=== PATIENT | male | born 1980 | race African-American/Black ===

== ENCOUNTER 2020-02-29 | Outpatient (REF) | payer OTHER, SELFPAY | END 2020-02-29 00:01 | disposition home or self-care (01) | LOC: HO.MDS | PROVIDERS: PCP Internal Medicine; Visit Provider Internal Medicine Gastroenterology | DX: K51.911 Ulcerative colitis, unspecified with rectal bleeding (principal) | CPT/HCPCS: J3380 ==

== ENCOUNTER → 2020-03-18 11:35 | Outpatient (BNVA) | payer OTHER, SELFPAY | PROVIDERS: PCP Internal Medicine; Referring Provider Internal Medicine; Visit Provider Internal Medicine Gastroenterology | DX: K51.319 Ulcerative (chronic) rectosigmoiditis with unspecified complications (principal); D12.6 Benign neoplasm of colon, unspecified; Z98.890 Other specified postprocedural states | CPT/HCPCS: 99212 ==

== ENCOUNTER 2020-03-28 08:33 | Outpatient (REF) | payer OTHER, SELFPAY | END 2020-03-28 08:34 | disposition home or self-care (01) | LOC: HO.MDS 08:33 | PROVIDERS: PCP Internal Medicine; Visit Provider Internal Medicine Gastroenterology | DX: K51.90 Ulcerative colitis, unspecified, without complications (principal) | CPT/HCPCS: 96365; J3380 ==

== ENCOUNTER 2020-05-05 14:35 | Outpatient (REF) | payer OTHER, SELFPAY ==
[2020-05-05 15:19] LABS: MANUAL DIFF FLAG NO
[2020-05-05 15:22] LABS: Basophils Percent Auto 0.6 % (0-2); Eosinophils Absolute Auto 0.3 X10*3/uL (0.0-0.4); Eosinophils Percent Auto 5.4 % (0-4); Hematocrit 41.3 % (42-52); Hemoglobin 14.1 g/dl (14.0-18.0); Imm Gran Abs Auto 0.03 X10*3/uL (0.00-0.03); Imm Gran Pct Auto 0.6 % (0.0-0.4); Lymphocytes Absolute Auto 1.4 X10*3/uL (1.2-4.9); Lymphocytes Percent Auto 25.7 % (20-40); Mean Corpuscular HGB Conc 34.1 g/dl (31.0-36.0); Mean Corpuscular Hemoglobin 29.6 pg (27.0-33.0); Mean Corpuscular Volume 86.8 fL (80-98); Mean Platelet Volume 9.5 fL (9.4-12.4); Monocytes Absolute Auto 0.4 X10*3/uL (0.1-1.2); Neutrophils Absolute Auto 3.2 X10*3/uL (2.0-8.3); Neutrophils Percent Auto 59.7 % (45-73); Platelet Count 230 X10*3/uL (160-400); Red Blood Count 4.76 X10*6/uL (4.60-5.80); Red Cell Distribution Width 13.4 % (11.0-16.0); White Blood Count 5.4 X10*3/uL (4.8-10.8)
[2020-05-05 15:47] LABS: Alanine Aminotransferase 24 U/L (0-40); Albumin Level 4.3 g/dL (3.5-5.0); Alkaline Phosphatase 43 U/L (39-117); Anion Gap 15 (12-20); Aspartate Amino Transferase 19 U/L (5-37); Bilirubin Total 0.9 mg/dL (0.0-1.0); Blood Urea Nitrogen 20 mg/dL (9-16); C Reactive Protein 0.22 mg/dL (< or = 0.50); Carbon Dioxide 26 mmol/L (22-29); Chloride 106 mmol/L (96-108); Estimated Glomerular Filt Rate 59; Glucose Random 92 mg/dL (60-115); Potassium 4.7 mmol/l (3.3-5.1); Sodium 142 mmol/L (135-145); Total Protein 7.5 g/dL (6.5-8.0)
[2020-05-05 16:09] LABS: Erythrocyte Sedimentation Rate 2 MM/HR (0-15)
== END 2020-05-05 14:36 | disposition home or self-care (01) ==
LOC: HO.LAB 14:35
PROVIDERS: Visit Provider Internal Medicine Gastroenterology
DX: D12.6 Benign neoplasm of colon, unspecified (principal); K51.319 Ulcerative (chronic) rectosigmoiditis with unspecified complications
CPT/HCPCS: 36415; 80053; 85025; 85652; 86140

== ENCOUNTER 2020-05-21 11:55 | Outpatient (REF) | payer OTHER, SELFPAY | END 2020-05-21 11:56 | disposition home or self-care (01) | LOC: HO.MDS 11:55 | PROVIDERS: PCP Internal Medicine; Visit Provider Internal Medicine Gastroenterology | DX: K51.911 Ulcerative colitis, unspecified with rectal bleeding (principal) | CPT/HCPCS: 96365; J3380 ==

== ENCOUNTER 2020-07-16 09:26 | Outpatient (REF) | payer OTHER, SELFPAY | END 2020-07-16 09:27 | disposition home or self-care (01) | LOC: HO.MDS 09:26 | PROVIDERS: PCP Internal Medicine; Visit Provider Internal Medicine Gastroenterology | DX: K51.011 Ulcerative (chronic) pancolitis with rectal bleeding (principal) | CPT/HCPCS: 96365; J3380 ==

== ENCOUNTER → 2020-08-04 14:54 | Outpatient (BNVA) | payer OTHER, SELFPAY | PROVIDERS: PCP Internal Medicine; Visit Provider Internal Medicine Gastroenterology | DX: K51.319 Ulcerative (chronic) rectosigmoiditis with unspecified complications (principal) ==

== ENCOUNTER 2020-09-19 14:30 | Outpatient (REF) | payer OTHER, SELFPAY ==
[2020-09-19 15:08] LABS: MANUAL DIFF FLAG NO
[2020-09-19 15:15] LABS: Basophils Absolute Auto 0.1 X10*3/uL (0.0-0.2); Basophils Percent Auto 0.9 % (0-2); Eosinophils Absolute Auto 0.4 X10*3/uL (0.0-0.4); Eosinophils Percent Auto 6.9 % (0-4); Hematocrit 40.9 % (42-52); Imm Gran Abs Auto 0.01 X10*3/uL (0.00-0.03); Imm Gran Pct Auto 0.2 % (0.0-0.4); Lymphocytes Absolute Auto 1.3 X10*3/uL (1.2-4.9); Lymphocytes Percent Auto 22.7 % (20-40); Mean Corpuscular HGB Conc 34.2 g/dl (31.0-36.0); Mean Corpuscular Hemoglobin 30.2 pg (27.0-33.0); Mean Corpuscular Volume 88.1 fL (80-98); Mean Platelet Volume 9.4 fL (9.4-12.4); Monocytes Absolute Auto 0.5 X10*3/uL (0.1-1.2); Monocytes Percent Auto 8.4 % (2-11); Neutrophils Absolute Auto 3.6 X10*3/uL (2.0-8.3); Neutrophils Percent Auto 60.9 % (45-73); Platelet Count 255 X10*3/uL (160-400); Red Blood Count 4.64 X10*6/uL (4.60-5.80); Red Cell Distribution Width 13.3 % (11.0-16.0); White Blood Count 5.8 X10*3/uL (4.8-10.8)
[2020-09-19 15:47] LABS: Alanine Aminotransferase 24 U/L (0-40); Albumin Level 4.5 g/dL (3.5-5.0); Alkaline Phosphatase 42 U/L (39-117); Anion Gap 12 (12-20); Aspartate Amino Transferase 20 U/L (5-37); Bilirubin Total 1.2 mg/dL (0.0-1.0); Blood Urea Nitrogen 15 mg/dL (9-16); C Reactive Protein 0.18 mg/dL (< or = 0.50); Calcium 9.1 mg/dL (8.4-10.2); Carbon Dioxide 28 mmol/L (22-29); Chloride 104 mmol/L (96-108); Estimated Glomerular Filt Rate 53; Glucose Random 96 mg/dL (60-115); Potassium 4.7 mmol/L (3.3-5.1); Sodium 139 mmol/L (135-145); Total Protein 7.5 g/dL (6.5-8.0)
[2020-09-19 15:55] LABS: Erythrocyte Sedimentation Rate 2 MM/HR (0-15)
== END 2020-09-19 14:31 | disposition home or self-care (01) ==
LOC: HO.LAB 14:30
PROVIDERS: Visit Provider Internal Medicine Gastroenterology
DX: K51.319 Ulcerative (chronic) rectosigmoiditis with unspecified complications (principal)
CPT/HCPCS: 36415; 80053; 85025; 85652; 86140

== ENCOUNTER 2020-10-02 10:15 | Outpatient (REF) | payer OTHER, SELFPAY ==
[2020-10-10 21:42] LABS: Calprotectin, Fecal 21 mcg/g
== END 2020-10-02 10:16 | disposition home or self-care (01) ==
LOC: HO.MDS 10:15
PROVIDERS: PCP Internal Medicine; Visit Provider Internal Medicine Gastroenterology
DX: K51.911 Ulcerative colitis, unspecified with rectal bleeding (principal)
CPT/HCPCS: 83993; 96365; J3380

== ENCOUNTER → 2020-11-07 09:25 | Outpatient (BNVA) | payer OTHER, SELFPAY | PROVIDERS: PCP Nurse Practitioner Family; Visit Provider Internal Medicine Gastroenterology ==

== ENCOUNTER 2020-12-09 11:12 | Outpatient (REF) | payer OTHER, SELFPAY | END 2020-12-09 11:13 | disposition home or self-care (01) | LOC: HO.MDS 11:12 | PROVIDERS: PCP Internal Medicine; Visit Provider Internal Medicine Gastroenterology | DX: K51.911 Ulcerative colitis, unspecified with rectal bleeding (principal) | CPT/HCPCS: 96365; J3380 ==

== ENCOUNTER 2021-02-11 10:41 | Outpatient (REF) | payer OTHER, SELFPAY ==
[2021-02-14 14:32] LABS: TS Negative Control Passed; TS Panel A 1; TS Panel B 1; TS Positive Control Passed; TSpotTB Negative (SeeBelow)
== END 2021-02-11 10:42 | disposition home or self-care (01) ==
LOC: HO.MDS 10:41
PROVIDERS: PCP Internal Medicine; Visit Provider Internal Medicine Gastroenterology
DX: K51.911 Ulcerative colitis, unspecified with rectal bleeding (principal)
CPT/HCPCS: 36415; 86481; 96365; J3380

== ENCOUNTER 2021-03-31 13:19 | Outpatient (REF) | payer OTHER, SELFPAY ==
[2021-03-31 13:37] LABS: MANUAL DIFF FLAG NO
[2021-03-31 13:45] LABS: Basophils Percent Auto 0.4 % (0-2); Eosinophils Absolute Auto 0.4 X10*3/uL (0.0-0.4); Eosinophils Percent Auto 4.7 % (0-4); Hemoglobin 14.6 g/dl (14.0-18.0); Imm Gran Abs Auto 0.02 X10*3/uL (0.00-0.03); Imm Gran Pct Auto 0.3 % (0.0-0.4); Lymphocytes Absolute Auto 1.4 X10*3/uL (1.2-4.9); Lymphocytes Percent Auto 17.9 % (20-40); Mean Corpuscular Hemoglobin 29.8 pg (27.0-33.0); Mean Corpuscular Volume 87.8 fL (80.0-98.0); Mean Platelet Volume 9.1 fL (9.4-12.4); Monocytes Absolute Auto 0.6 X10*3/uL (0.1-1.2); Monocytes Percent Auto 7.7 % (2-11); Neutrophils Absolute Auto 5.41 x10*3/uL (2.0-8.3); Platelet Count 276 X10*3/uL (160-400); Red Cell Distribution Width 13.1 % (11.0-16.0); White Blood Count 7.8 X10*3/uL (4.8-10.8)
[2021-03-31 14:08] LABS: Alanine Aminotransferase 24 U/L (0-40); Albumin Level 4.4 g/dL (3.5-5.0); Alkaline Phosphatase 43 U/L (39-117); Anion Gap 10 (12-20); Aspartate Amino Transferase 21 U/L (5-37); Bilirubin Total 1.2 mg/dL (0.0-1.0); Blood Urea Nitrogen 14 mg/dL (9-16); C Reactive Protein 0.09 mg/dL (< or = 0.50); Calcium 9.3 mg/dL (8.4-10.2); Carbon Dioxide 30 mmol/L (22-29); Chloride 104 mmol/L (96-108); Estimated Glomerular Filt Rate > 60; Glucose Random 90 mg/dL (60-115); Potassium 4.5 mmol/L (3.3-5.1); Sodium 139 mmol/L (135-145); Total Protein 7.5 g/dL (6.5-8.0)
[2021-03-31 14:29] LABS: Erythrocyte Sedimentation Rate 2 MM/HR (0-15)
[2021-03-31 14:50] LABS: Folate 9.5 ng/mL (> or = 4.0); Vitamin B12 433 pg/mL (200-900)
== END 2021-03-31 13:20 | disposition home or self-care (01) ==
LOC: HO.LAB 13:19
PROVIDERS: Visit Provider Internal Medicine Gastroenterology
DX: K75.81 Nonalcoholic steatohepatitis (NASH) (principal); K51.30 Ulcerative (chronic) rectosigmoiditis without complications
CPT/HCPCS: 36415; 80053; 82607; 82746; 85025; 85652; 86140

== ENCOUNTER 2021-04-03 12:01 | Outpatient (REF) | payer OTHER, SELFPAY ==
[2021-04-03 13:48] LABS: CDiff Gene PCR NEGATIVE (Negative)
[2021-04-07 20:46] LABS: Calprotectin, Fecal 23 mcg/g
== END 2021-04-03 12:02 | disposition home or self-care (01) ==
LOC: HO.LNP 12:01
PROVIDERS: Visit Provider Internal Medicine Gastroenterology
DX: K51.319 Ulcerative (chronic) rectosigmoiditis with unspecified complications (principal)
CPT/HCPCS: 83993; 87493

== ENCOUNTER 2021-04-14 08:52 | Outpatient (REF) | payer OTHER, SELFPAY | END 2021-04-14 08:53 | disposition home or self-care (01) | LOC: HO.MDS 08:52 | PROVIDERS: PCP Internal Medicine; Visit Provider Internal Medicine Gastroenterology | DX: K51.911 Ulcerative colitis, unspecified with rectal bleeding (principal) | CPT/HCPCS: 96365; J3380 ==

== ENCOUNTER 2021-07-13 10:57 | Outpatient (REF) | payer OTHER, SELFPAY | END 2021-07-13 10:58 | disposition home or self-care (01) | LOC: HO.MDS 10:57 | PROVIDERS: PCP Internal Medicine; Visit Provider Internal Medicine Gastroenterology | DX: K51.911 Ulcerative colitis, unspecified with rectal bleeding (principal) | CPT/HCPCS: 96365; J3380 ==

== ENCOUNTER 2021-09-07 09:03 | Outpatient (REF) | payer OTHER, SELFPAY | END 2021-09-07 09:04 | disposition home or self-care (01) | LOC: HO.MDS 09:03 | PROVIDERS: PCP Internal Medicine; Visit Provider Internal Medicine Gastroenterology | DX: K51.911 Ulcerative colitis, unspecified with rectal bleeding (principal) | CPT/HCPCS: 96365; J3380 ==

== ENCOUNTER 2021-11-02 09:28 | Outpatient (REF) | payer OTHER, SELFPAY | END 2021-11-02 09:29 | disposition home or self-care (01) | LOC: HO.MDS 09:28 | PROVIDERS: PCP Internal Medicine; Visit Provider Internal Medicine Gastroenterology | DX: K51.911 Ulcerative colitis, unspecified with rectal bleeding (principal) | CPT/HCPCS: 96365; J3380 ==

== ENCOUNTER 2022-01-11 13:43 | Outpatient (REF) | payer OTHER, SELFPAY ==
[2022-01-13 22:36] LABS: TS Negative Control Passed; TS Panel A 0; TS Panel B 0; TS Positive Control Passed; TSpotTB Negative (Negative)
== END 2022-01-11 13:44 | disposition home or self-care (01) ==
LOC: HO.MDS 13:43
PROVIDERS: Visit Provider Internal Medicine Gastroenterology
DX: K51.911 Ulcerative colitis, unspecified with rectal bleeding (principal)
CPT/HCPCS: 36415; 86481; 96365; J3380

== ENCOUNTER 2022-04-05 08:27 | Outpatient (REF) | payer OTHER, SELFPAY | END 2022-04-05 08:28 | disposition home or self-care (01) | LOC: HO.MDS 08:27 | PROVIDERS: Visit Provider Internal Medicine Gastroenterology | DX: K51.911 Ulcerative colitis, unspecified with rectal bleeding (principal) | CPT/HCPCS: 96365; J3380 ==

== ENCOUNTER 2022-06-07 09:19 | Outpatient (REF) | payer OTHER, SELFPAY | END 2022-06-07 09:20 | disposition home or self-care (01) | LOC: HO.MDS 09:19 | PROVIDERS: Visit Provider Internal Medicine Gastroenterology | DX: K51.911 Ulcerative colitis, unspecified with rectal bleeding (principal) | CPT/HCPCS: 96365; J3380 ==

== ENCOUNTER 2022-08-02 08:42 | Outpatient (REF) | payer OTHER, SELFPAY | END 2022-08-02 08:43 | disposition home or self-care (01) | LOC: HO.MDS 08:42 | PROVIDERS: Visit Provider Internal Medicine Gastroenterology | DX: K51.911 Ulcerative colitis, unspecified with rectal bleeding (principal) | CPT/HCPCS: 96365; J3380 ==

== ENCOUNTER 2022-11-08 08:08 | Outpatient (REF) | payer OTHER, SELFPAY ==
[2022-11-10 19:23] LABS: TS Negative Control Passed; TS Panel A 0; TS Panel B 1; TS Positive Control Passed; TSpotTB Negative (Negative)
== END 2022-11-08 08:09 | disposition home or self-care (01) ==
LOC: HO.MDS 08:08
PROVIDERS: Visit Provider Internal Medicine Gastroenterology
DX: K51.90 Ulcerative colitis, unspecified, without complications (principal)
CPT/HCPCS: 36415; 86481; 96365; J3380

== ENCOUNTER 2022-12-27 09:27 | Day surgery (SDC) | payer OTHER, SELFPAY ==
--- NOTE | 2022-12-27 10:22 | MHC.SHP ---
Pre-Procedural Eval Section A Date of Service: 12/27/22 The patient is an INPATIENT: No The History & Physical has been completed within 30 days and I have reviewed it.: No Section B Chief Complaint: Screening, FU of UC Relevant Family History (Specify if Yes): No Relevant Social History: Tobacco Use Present Medications: see Short Stay Collaborative assessment Medical History: Significant History (hx of UC, hx of colon polyps) History of Previous Operations: Relevant previous surgery/procedure and date(s) (History of colonoscopy Hx of endoscopy) Allergies: Allergies Allergy/AdvReac Type Severity Reaction Status Date / Time No Known Allergies Allergy Verified 11/07/20 09:25 [No Known Allergies*] Review of Systems Sugical H&P ROS: Negative: Constitution, Cardiovascular, Respiratory and Gastrointestinal Exam Surgical H&P Exam: Normal: Heart, Normal: Lungs, Normal: Extremities and Normal: Abdomen Plan Diagnosis/Plan: Unchanged I have reviewed the history and physical and performed a pertinent physical examination on my patient. No changes have occurred unless specified. Time Spent With Patient Time: Total time managing care of this patient today ____ minutes.
[2022-12-27 11:13] VITALS: BMI 30.8
[2022-12-27 11:16] VITALS: BP 134/74; PULSE 55; RESP 18; TEMP 36.6; O2SAT 98
[2022-12-27] MEDS: Lactated Ringers 1,000 ML 50 ML IVCONT (11:20)
--- NOTE | 2022-12-27 11:34 | P.CONAN_ITS ---
[facility] Active Problems Active Problems: All Active Problems (Updated 03/18/20 @ 12:05 by Lauren Christiansen MD) Tubular adenoma of colon (Acute) Ulcerative colitis (Acute) Family History Family History Father Diabetes History of cancer Mother History of cancer Family history of problems with anesthesia: No Surgical History Surgical History History of colonoscopy Hx of endoscopy History of Problems with Anesthesia: No Social History Social History Household Members: Children Alcohol intake: current Alcohol intake frequency: holidays/special occasions only Patient Tobacco Use Status: Current someday Tobacco user Smoked in Last 30 Days: Yes Patient Interested in Nicotine Replacement: No Are you DNR?: No Advance Directives: No Advance Directives Information Provided: Yes Nutrition Risks: No Nutritional Risk Meds Allergies Allergy/AdvReac Type Severity Reaction Status Date / Time No Known Allergies Allergy Verified 12/27/22 11:17 [No Known Allergies*] Active Medications: Current Medications Lactated Ringer's (Lr) 1,000 mls @ 50 mls/hr IVCONT .Q20H EMILIANO Last Admin: 12/27/22 11:20 Dose: 50 mls/hr Exam Exam Date and Time: December 27, 2022 1134 Height,Weight and Vital Signs: Height 6 ft 2 in Weight 108.862 kg Last Vital Signs Temp 97.9 F 12/27/22 11:16 Pulse 55 12/27/22 11:16 Resp 18 12/27/22 11:16 BP 134/74 12/27/22 11:16 Pulse Ox 98 12/27/22 11:16 O2 Del Method Room Air 12/27/22 11:16 Airway Mallampati Class: II (missing a couple, denies any loose) TM Dist: >3cm Neck ROM: Full Heart: rrr Lungs: cta Assessment and Plan Assessment Anesthesia Assessment: Anesthesia Plan Discussed and Chart Reviewed Final Anesthetic Review Family History of Problems with Anesthesia: No History of Problems with Anesthesia: No NPO: Yes ASA Class: II Final Preanesthetic Review: No Changes in Pt Med Stat, Meds/Allgs Chart Reviewed and Consent Obtained/Reviewed Patient Risk: Intermediate Procedure Risk: Intermediate Anesthetic Plan Anesthetic Plan: MAC: Disposition: Standard PACU
--- NOTE | 2022-12-27 11:35 | PC.NURSE ---
report given to cody tipton rn at this time.
--- NOTE | 2022-12-27 12:34 | W.PM.OPN ---
Operative Note Operative Note Date of Service: 12/27/22 Narrative: COLONOSCOPY TILL CECUM WITH BIOPSIES AND CHROMOENDOSCOPY Pre-op diagnosis: screening, fu of ulcerative colitis Post-op diagnosis:? Inactive ulcerative colitis, hemorrhoids Endoscopist:? Laurence Durand MD Anesthesia:?MAC Consent: Indications for the procedure and potential complications of bleeding, perforation, reaction to medications and missed diagnosis were discussed with the patient and informed consent was obtained. Instrument: Olympus CF H 190 L variable stiffness adult colonoscope Monitoring: Vital signs and clinical assessment, intermittent blood pressure monitoring, continuous EKG monitoring, Pulse oximetry and Carbon Dioxide monitoring were done throughout the procedure. Please see anesthesia flowsheet. Colon withdrawl time was 21 minutes. Procedure: The patient was placed in the left lateral decubitis position and pre-procedure medications were administered. After a digital rectal examination of the ano-rectum, the video colonoscope was inserted into the rectum and advanced through the colon to the cecum. The colonoscope was slowly withdrawn in a retrograde panoramic fashion and the colon mucosa was carefully examined using chromoendoscopy with methylene blue including a retroflexed view of the rectum. Findings and interventions are described below. Procedure Difficulty: Without difficulty Findings: Terminal Ileum: Not evaluated Cecum: Normal Ascending Colon: Normal Transverse Colon: Normal Descending Colon: Normal Sigmoid Colon: Inactive UC in the left colon Rectum: Patchy erythema without ulcers or erosions Ano-rectum: Moderate internal hemorrhoids Colon preparation: Good Impression and Post Procedure Diagnosis: Colonoscopy Findings: No polyps were detected Inactive UC in the left colon - four quadrant biopsies were obtained. Moderate hemorrhoids on retroflexed exam. Plan: Await pathology results Patient has an appointment on 01/28/23 in the [facility] with Dr Christiansen. Repeat Colonoscopy interval based on path results - in 2-3 years for UC surveillance Above findings were reviewed with the patient. BIOPSIES SHOWED: A.? Cecum, biopsy:? Colonic mucosa within normal limits. B.? Colon, ascending, biopsy:? Colonic mucosa within normal limits. C.? Colon, transverse, biopsy:? Colonic mucosa within normal limits. D.? Colon, descending, biopsy:? Colonic mucosa within normal limits. E.? Colon, sigmoid, biopsy:? Colonic mucosa within normal limits. F.? Rectum, biopsy:? Rectal mucosa within normal limits. COMMENT:? No dysplasia is identified.
[2022-12-27 13:20] VITALS: BP 101/62; PULSE 60; RESP 16; TEMP 36.6; O2SAT 98
[2022-12-27 13:35] VITALS: BP 111/69; PULSE 66; RESP 16; TEMP 36.6; O2SAT 99
== END 2022-12-27 14:02 | disposition home or self-care (01) ==
PROVIDERS: Visit Provider Internal Medicine Gastroenterology
PROC: 0DJD8ZZ Inspection of Lower Intestinal Tract, Via Natural or Artificial Opening Endoscopic (ICD-10-PCS; CPT 45378; principal; 2022-12-27 11:20)
DX: Z12.11 Encounter for screening for malignant neoplasm of colon (principal); Z86.010 Personal history of colon polyps; K64.8 Other hemorrhoids; K51.319 Ulcerative (chronic) rectosigmoiditis with unspecified complications; K59.09 Other constipation; Z79.899 Other long term (current) drug therapy; F17.210 Nicotine dependence, cigarettes, uncomplicated
CPT/HCPCS: 45380; 44799; 88305

== ENCOUNTER → 2022-12-27 09:27 | Outpatient (BNV) | payer OTHER, SELFPAY | PROVIDERS: Visit Provider Internal Medicine Gastroenterology | DX: Z12.11 Encounter for screening for malignant neoplasm of colon (principal); K52.9 Noninfective gastroenteritis and colitis, unspecified; K64.8 Other hemorrhoids; D12.8 Benign neoplasm of rectum; D12.0 Benign neoplasm of cecum | CPT/HCPCS: 45378; 45399 ==

== ENCOUNTER 2023-02-28 08:15 | Outpatient (REF) | payer OTHER, SELFPAY | END 2023-02-28 08:16 | disposition home or self-care (01) | LOC: HO.MDS 08:15 | PROVIDERS: Visit Provider Internal Medicine Gastroenterology | DX: K51.90 Ulcerative colitis, unspecified, without complications (principal) | CPT/HCPCS: 96365; J3380 ==

== ENCOUNTER 2023-07-25 08:46 | Outpatient (REF) | payer OTHER, SELFPAY | END 2023-07-25 08:47 | disposition home or self-care (01) | LOC: HO.MDS 08:46 | PROVIDERS: Visit Provider Internal Medicine Gastroenterology | DX: K51.90 Ulcerative colitis, unspecified, without complications (principal) | CPT/HCPCS: 96365; J3380 ==

== ENCOUNTER 2025-02-18 14:00 | Outpatient (AMB) | payer OTHER, SELFPAY ==
--- NOTE | 2025-02-18 14:02 | A.OFFVIS_ITS ---
Vital Signs 02/18/25 14:04 Height 6 ft 1 in Weight 251 lb 5.231 oz BMI 33.2 BP 128/61 Blood Pressure Location Lt brachial Position Sitting Pulse 75 Intake Visit Reasons: f/u crohns Intake Note: Hector presents in the office as a follow up Crohns. CC: GERD he states that he goes back and forth diarrhea and constipation. States he had chili last night. 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: No Allergies No Known Allergies (No Known Allergies*) Allergy (Verified 02/18/25 14:04) HPI HPI f/u crohns: Details: 44-year-old male seen for f/u RECAP: Hx of UC--dx 2012 prior Rx with imuran but caused n/v so he stopped recommended on mesalamine enema wasn;t approved so given proctofoam and apriso sx were getting worse so sigmoidoscopy done and given steroids started entyvio 02/15/2020 Endoscopies: colonoscopy--08/2018-- rectosigmoid inflammation sigmoidoscopy-- 01/2020--inflammation to 22 cm bx tubular adenoam removed and moderate chronic colitis colo 12/19- inactive colitis, mild erythema - no active inflammation on the path INTERIM: He was off entyvio for 5 months due to insurance now he is much better good appetite, no weight loss no nausea or vomiting no constipation he sometimes sees blood in tissue but has 'cracked skin' he has one meal at night, stir hinds, more fruit and veg recently few beers, no drugs he likes cigars 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 VITAL SIGNS:see workflow HEENT: Nonicteric sclerae, PERRLA, EOMI. Oropharynx clear. Moist mucous membranes. Conjunctivae appear well perfused. No thyroid mass. CHEST: Chest wall is nontender. HEART: Regular rate and rhythm without murmurs. LUNGS: Clear to auscultation bilaterally. ABDOMEN: Soft, positive bowel sounds, nontender, no organomegaly.no flank tenderness SKIN: No rash, no excessive bruising, petechiae, or purpura. NEUROLOGIC: Cranial nerves II-XII intact without motor/sensory deficit. Psych: normal affect Assessment & Plan (1) Ulcerative colitis: seems to be in clinical remission with entyvio, (2) Tubular adenoma of colon Plan: 1/ ulcerative colitis, doing well with entyvio--cont now 2/ tubular adenoma--rept colo also due to some bleeding 3/ repeat labs [facility] Surgical History Hx of endoscopy History of colonoscopy Family History Father Diabetes History of cancer Mother History of cancer Social History Household Members: Children Alcohol intake: current Alcohol intake frequency: holidays/special occasions only Patient Tobacco Use Status: Current someday Tobacco user Physical Exam Vital Signs: BMI result Body Mass Index 33.2 Assessment & Plan Assessment & Plan (1) Ulcerative colitis: Code(s): K51.90 - Ulcerative colitis, unspecified, without complications Category: Medical Qualifiers: Ulcerative colitis location: ulcerative rectosigmoiditis Digestive di sease complication type: unspecified complication Qualified Code(s): 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 Today K51.319 - Ulcerative (chronic) rectosigmoidi tis with unspecified complications, K51.50 - Left sided colitis without complications Comprehensive Met. 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, Z11.59 - Encounter for screening for other viral diseases Referrals GI Procedure Notification K51.319 - 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
[2025-02-18 14:04] VITALS: BP 128/61; PULSE 75; BMI 33.2
== END 2025-02-18 14:26 | disposition home or self-care (01) ==
LOC: HO.HGI 14:01
PROVIDERS: Visit Provider Internal Medicine Gastroenterology
DX: K51.319 Ulcerative (chronic) rectosigmoiditis with unspecified complications (principal)
CPT/HCPCS: 99213

== ENCOUNTER → 2025-02-18 14:00 | Outpatient (BNVA) | payer OTHER, SELFPAY | PROVIDERS: Visit Provider Internal Medicine Gastroenterology | DX: K51.319 Ulcerative (chronic) rectosigmoiditis with unspecified complications (principal) | CPT/HCPCS: 99212 ==